=== PATIENT | female | born 1945 | race Caucasian/White ===

== ENCOUNTER → 2020-06-15 | Outpatient (CLI) | payer MEDICARE, OTHER ==
[~2020-06-15] MED LIST: ARIXTRA; CALCITRATE200 MG PO; GLIPIZIDE XL5 MG PO; HYDROCHLOROTH12.5 MG PO; HYDROCHLOROTHIAZIDE; INVOKANA100 MG PO; LACTINEX CHEWA1 EACH PO; LOSARTAN-HCTZ1 EAC1 PO; LUMIGAN2.5 M1 OP; LUMIGAN2.5 ML OP; MOBIC7.5 M1 PO; NORCO 5-325 TA1 EACH; NORCO 5-325 TA1 EACH PO; ONDANSETRON HCL4 M2 PO; PAROXETINE HCL10 MG PO; PRILOSEC 20 MG20 MG PO; PRINIVIL40 MG PO; ROVIN-CF OF TA1 EACH PO; TAPAZOLE5 MG PO; TIMOLOL GL0.5 %/5 M1 OP; TOPROL XL50 MG PO; VANCOCIN 125 M125 M1 PO
== END ==
LOC: M.ULTRA 15:00
PROVIDERS: ATTEND Family Medicine
DX: R60.9 Edema, unspecified (principal)